=== PATIENT | female | born 1990 | race Caucasian/White ===

== ENCOUNTER 2017-11-26 05:40 | Inpatient (IN) | payer MEDICAID ==
--- NOTE | 2017-11-26 06:59 | PCM.LDHP ---
L&D History of Present Illness - General Date of Service: 11/26/17 Admit Problem/Dx: Admission Diagnosis/Problem Admission Diagnosis/Problem Source of Information: Patient History Limitations: Reports: No Limitations - History of Present Illness Introduction:: 27-year-old PERRY 11/27/17 at 39 weeks 6 days estimated gestational age presented to labor and delivery with contractions cervix 3 cm dilated 80% effaced soft anterior vertex -1 station. Amniotomy performed at 0 650 to clear fluid. Group B strep negative. No history of MRSA. O+, antibody screen negative. On 05/23/17 hemoglobin hematocrit 13.3/37.4 platelets 232,000. Rubella immune. Serology nonreactive. Hepatitis B surface antigen and HIV negative. GC, a probe negative. On 09/04/17 hemoglobin hematocrit 12.3/37.1 platelets 199,000 diabetes screen 134 3 hour glucose tolerance test normal at 75 fasting 1 hour 145, two-hour 150, 3 hour 112. On 10/30/17 group B strep negative. Timing/Duration: Reports: hour(s): Quality: Reports: Ache, Pressure Severity: Moderate Pain Score: 7 Improves with: Reports: None Worsens with: Reports: None Associated Symptoms: Reports: N - Related Data Allergies/Adverse Reactions: Allergies Allergy/AdvReac Type Severity Reaction Status Date / Time No Known Allergies Allergy Verified 11/26/17 06:47 Past Medical History [employer] History: Reports: : 1 Para: 0 (0000) LMP (Approximate): Psychiatric History: Reports: Anxiety, Depression Social & Family History - Family History Cardiac: Reports: Hypertension (Father) Respiratory: Reports: Asthma (Paternal grandmother grandfather and brother Bryan patient has no history of asthma)) Endocrine/Metabolic: Reports: Diabetes, type II (Paternal grandmother) H&P Review of Systems - Review of Systems: Review Of Systems: See Below General: Reports: No Symptoms HEENT: Reports: No Symptoms Pulmonary: Reports: No Symptoms Cardiovascular: Reports: No Symptoms Gastrointestinal: Reports: No Symptoms Genitourinary: Reports: No Symptoms Musculoskeletal: Reports: No Symptoms Skin: Reports: No Symptoms Psychiatric: Reports: No Symptoms Neurological: Reports: No Symptoms Hematologic/Lymphatic: Reports: No Symptoms Immunologic: Reports: No Symptoms L&D Exam - Exam Exam: See Below - Vital Signs Weight: 213 lb - OB Specific Fundal Height In cm: 40 Contraction Duration (sec): 60 Contraction Frequency (min): 3 Contraction Intensity: Moderate to Strong Movement: Active Heart Tones: Present Heart Tones per Min: 135 Heart Rate (FHR) Variability: Moderate (6-25 bmp) Presentation: Vertex - Griffin Score Griffin Score Cervix Position: Anterior Griffin Score Consistency: Soft Griffin Score Effacement: >80% Griffin Score Dilation: 3-4 cm Griffin Score Infant's Station: -1 ,0 Griffin Score Total: 11 - Exam General: Alert, Oriented HEENT: Conjunctiva Clear, Hearing Intact, Mucosa Moist & [place], PERRLA Neck: Supple, Trachea Midline Lungs: Clear to Auscultation, Normal Respiratory Effort Cardiovascular: Regular Rate, Regular Rhythm GI/Abdominal Exam: Normal Bowel Sounds, Soft Rectal Exam: Normal Rectal Tone Genitourinary: Normal external exam, Normal bimanual exam, Normal speculum exam Extremities: Normal Inspection, Normal Range of Motion, Non-Tender, No Pedal Edema, Normal Capillary Refill Skin: Warm, Dry, Intact Neurological: Reflexes Equal Bilateral DTR: 2+: Patella (L), Patella (R) Psychiatric: Alert, Normal Affect, Normal Mood - Problem List (1) 39 weeks gestation of SNOMED Code(s): 85847620 ICD Code: Z3A.39 - 39 WEEKS GESTATION OF Status: Acute Current Visit: Yes Problem List Initiated/Reviewed/Updated: No Assessment/Plan Comment:: Labor and delivery
[2017-11-26] MEDS ORDERED: Sodium Chloride 0.9% 10 ML Syringe FLUSH PRN (07:04)
[2017-11-26] MEDS ORDERED: Oxytocin/Lactated Ringers 10 UNIT/1,000 ML BAG IV SCH (07:15)
[2017-11-26] MEDS: Lactated Ringers 1,000 ML IV SCH ×3 (07:15→12:06)
[2017-11-26] MEDS ORDERED: diphenhydrAMINE 50 MG/ML SDV IVPUSH PRN (08:04)
[2017-11-26] MEDS ORDERED: fentaNYL 100 MCG/2 ML SDV EPIDUR PRN (08:04)
[2017-11-26] MEDS ORDERED: ePHEDrine 50 MG/ML SDV IVPUSH PRN (08:04)
[2017-11-26] MEDS ORDERED: Ondansetron 4 MG/2 ML SDV IVPUSH PRN (08:04)
[2017-11-26] MEDS: Bupivacaine/fentaNYL/NS 100 ML Bag EPIDUR SCH ×2 (08:35→15:18)
--- NOTE | 2017-11-26 08:48 | PCM.PREANE ---
Preanesthetic Assessment - Procedure Proposed Procedure: TIMOTEO - Anesthesia/Transfusion/Family Hx Anesthesia History: Prior Anesthesia Without Reaction Family History of Anesthesia Reaction: No Transfusion History: No Prior Transfusion(s) - Review of Systems General: No Symptoms Pulmonary: No Symptoms Cardiovascular: No Symptoms Gastrointestinal: No Symptoms Neurological: Other ([place]- hearing aide in left ear ) Other: Reports: None - Physical Assessment NPO Status Date: 11/26/17 NPO Status Time: 04:00 O2 Sat by Pulse Oximetry: 99 Respiratory Rate: 20 Vital Signs: Last Vital Signs Temp 36.6 C 11/26/17 07:25 Pulse Resp 20 11/26/17 07:25 BP 143/77 H 11/26/17 07:25 Pulse Ox 99 11/26/17 07:25 Height: 1.68 m Weight: 96.615 kg Mental Status: Alert & Oriented x3 Airway Class: Mallampati = 2 Dentition: Reports: Normal Dentition Thyro-Mental Finger Breadths: 3 Mouth Opening Finger Breadths: 3 ROM/Head Extension: Full Lungs: Clear to Auscultation, Normal Respiratory Effort Cardiovascular: Regular Rate, Regular Rhythm - Lab Values: Laboratory Last Values WBC 13.23 K/mm3 (3.98-10.04) H 11/26/17 07:45 RBC 4.00 M/mm3 (3.98-5.22) 11/26/17 07:45 Hgb 12.1 gm/L (11.2-15.7) 11/26/17 07:45 Hct 35.2 % (34.1-44.9) 11/26/17 07:45 MCV 88.0 fl (79.4-94.8) 11/26/17 07:45 MCH 30.3 pg (25.6-32.2) 11/26/17 07:45 MCHC 34.4 g/dl (32.2-35.5) 11/26/17 07:45 RDW Std Deviation 42.3 fL (36.4-46.3) 11/26/17 07:45 Plt Count 159 K/mm3 (182-369) L 11/26/17 07:45 MPV 10.1 fl (9.4-12.3) 11/26/17 07:45 Neut % (Auto) 86.0 % (34.0-71.1) H 11/26/17 07:45 Lymph % (Auto) 7.9 % (19.3-51.7) L 11/26/17 07:45 [place] % (Auto) 5.1 % (4.7-12.5) 11/26/17 07:45 Eos % (Auto) 0.2 (0.7-5.8) L 11/26/17 07:45 Baso % (Auto) 0.1 % (0.1-1.2) 11/26/17 07:45 Neut # (Auto) 11.40 K/mm3 (1.56-6.13) H 11/26/17 07:45 Lymph # (Auto) 1.04 K/mm3 (1.18-3.74) L 11/26/17 07:45 [place] # (Auto) 0.67 K/mm3 (0.24-0.36) H 11/26/17 07:45 Eos # (Auto) 0.02 K/mm3 (0.04-0.36) L 11/26/17 07:45 Baso # (Auto) 0.01 K/mm3 (0.01-0.08) 11/26/17 07:45 Manual Slide Review Abnormal smear 11/26/17 07:45 Fibrinogen 435 mg/dL (187-446) 11/26/17 07:45 Fibrin Degrad Products < 5 ug/ml ug/mL (<5) 11/26/17 07:45 BUN 8 mg/dL (7-18) 11/26/17 07:45 Creatinine 0.8 mg/dL (0.55-1.02) 11/26/17 07:45 Est Cr Clr Drug Dosing 99.76 mL/min 11/26/17 07:45 Estimated GFR (MDRD) > 60 mL/min (>60) 11/26/17 07:45 Uric Acid 4.6 mg/dL (2.6-6.0) 11/26/17 07:45 AST 18 U/L (15-37) 11/26/17 07:45 ALT 18 U/L (14-59) 11/26/17 07:45 Lactate Dehydrogenase 144 U/L (81-234) 11/26/17 07:45 - Allergies Allergies/Adverse Reactions: Allergies Allergy/AdvReac Type Severity Reaction Status Date / Time No Known Allergies Allergy Verified 11/26/17 06:47 - Blood Blood Available: No Product(s) Available: None - Anesthesia Plan Pre-Op Medication Ordered: None - Acknowledgements Anesthesia Type Planned: Epidural Pt an Appropriate Candidate for the Planned Anesthesia: Yes Alternatives and Risks of Anesthesia Discussed w Pt/Guardian: Yes Pt/Guardian Understands and Agrees with Anesthesia Plan: Yes PreAnesthesia Questionnaire TAR HEATER History: Reports: Psychiatric History: Reports: Anxiety, Depression - CURRENT (IN HOUSE) MEDS Current Meds: Current Medications Diphenhydramine HCl (Benadryl) 25 mg IVPUSH Q6H PRN PRN Reason: Pruritis Ephedrine Sulfate (Ephedrine Sulfate) 5 mg IVPUSH ASDIRECTED PRN PRN Reason: Hypotension Fentanyl (Sublimaze) 100 mcg EPIDUR Q3H PRN PRN Reason: Pain Last Admin: 11/26/17 08:34 Dose: 100 mcg Fentanyl/Bupivacaine HCl (Fentanyl/Bupivacaine/Ns 2 Mcg-0.125% 100 Ml) 100 ml EPIDUR ASDIRECTED DORIAN Last Admin: 11/26/17 08:35 Dose: 100 ml Lactated Ringer's (Ringers, Lactated) 1,000 mls @ 100 mls/hr IV ASDIRECTED DORIAN Last Admin: 11/26/17 07:15 Dose: 999 mls/hr Oxytocin/Lactated Ringer's (Pitocin In Lr 10 Units/1,000 Ml) 10 unit in 1,000 mls @ 12 mls/hr IV TITRATE DORIAN; Protocol Ondansetron HCl (Zofran) 4 mg IVPUSH ONETIME PRN PRN Reason: Nausea/Vomiting Sodium Chloride (Saline Flush) 10 ml FLUSH ASDIRECTED PRN PRN Reason: Keep Vein Open
[2017-11-26] MEDS ORDERED: Bupivacaine 0.25% 10 ML SDV ONE (10:00)
--- NOTE | 2017-11-26 16:44 | PCM.DEL ---
L & D Note - General Info Date of Service: 11/26/17 Mother's Due Date: 11/27/17 - Delivery Note Labor: Spontaneous, Augmented by ARM Cervical Ripening Method: Oxytocin Delivery Outcome: Livebirth (Female liveborn Friday11/26/17 at 1619 hrs. MARY no nuchal cord Apgars 8/9. Weight 4030 g/8 pounds 14.2 ounces over second- degree midline laceration under epidural anesthesia.) Delivery Method: Spontaneous Vaginal Delivery-Single Delivery Mode: Spontaneous Presentation: Left Occiput Anterior (MARY) Nuchal Cord: None Prep: Povidone-Iodine (Betadine Anesthesia Type: Epidural Amniotic Fluid Description: Clear Episiotomy Type: None Laceration: 2nd Degree Suture type: Other (Monocryl) Suture size: 3-0 (2) Placenta: Intact, Spontaneous (3 hrs. intact examined discarded) Cord: 3 Vessels Estimated Blood Loss: 250 Resuscitation Needed: No [place]: Suctioned, Bulb Syringe, Stimulated, Warmed, [place] Used, Warmer Used Provider: Con Solano Score 1 min: 8 Score 5 min: 9 - General Info Date of Service: 11/26/17 Functional Status: Reports: Pain Controlled - Review of Systems General: Reports: No Symptoms HEENT: Reports: No Symptoms Pulmonary: Reports: No Symptoms Cardiovascular: Reports: No Symptoms Gastrointestinal: Reports: No Symptoms Genitourinary: Reports: No Symptoms Musculoskeletal: Reports: No Symptoms Skin: Reports: No Symptoms Neurological: Reports: No Symptoms Psychiatric: Reports: No Symptoms - Patient Data Vitals - Most Recent: Last Vital Signs Temp 97.8 F 11/26/17 07:25 Pulse Resp 20 11/26/17 08:47 BP 143/77 H 11/26/17 07:25 Pulse Ox 99 11/26/17 08:47 Weight - Most Recent: 213 lb I&O - Last 24 Hours: Intake & Output 11/26/17 11/26/17 11/26/17 06:59 14:59 22:59 Intake Total 0 Balance 0 Lab Results Last 24 Hours: Laboratory Results - last 24 hr 11/26/17 11/26/17 11/26/17 Range/Units 07:45 07:45 07:45 WBC 13.23 H (3.98-10.04) K/mm3 RBC 4.00 (3.98-5.22) M/mm3 Hgb 12.1 (11.2-15.7) gm/L Hct 35.2 (34.1-44.9) % MCV 88.0 (79.4-94.8) fl MCH 30.3 (25.6-32.2) pg MCHC 34.4 (32.2-35.5) g/dl RDW Std Deviation 42.3 (36.4-46.3) fL Plt Count 159 L (182-369) K/mm3 MPV 10.1 (9.4-12.3) fl Neut % (Auto) 86.0 H (34.0-71.1) % Lymph % (Auto) 7.9 L (19.3-51.7) % [place] % (Auto) 5.1 (4.7-12.5) % Eos % (Auto) 0.2 L (0.7-5.8) Baso % (Auto) 0.1 (0.1-1.2) % Neut # (Auto) 11.40 H (1.56-6.13) K/mm3 Lymph # (Auto) 1.04 L (1.18-3.74) K/mm3 [place] # (Auto) 0.67 H (0.24-0.36) K/mm3 Eos # (Auto) 0.02 L (0.04-0.36) K/mm3 Baso # (Auto) 0.01 (0.01-0.08) K/mm3 Manual Slide Review Abnormal smear Fibrinogen 435 (187-446) mg/dL Fibrin Degrad Products < 5 ug/ml (<5) ug/mL BUN (7-18) mg/dL Creatinine (0.55-1.02) mg/dL Est Cr Clr Drug Dosing mL/min Estimated GFR (MDRD) (>60) mL/min Uric Acid (2.6-6.0) mg/dL AST (15-37) U/L ALT (14-59) U/L Lactate Dehydrogenase (81-234) U/L Blood Type O POSITIVE Gel Antibody Screen Negative 11/26/17 Range/Units 07:45 WBC (3.98-10.04) K/mm3 RBC (3.98-5.22) M/mm3 Hgb (11.2-15.7) gm/L Hct (34.1-44.9) % MCV (79.4-94.8) fl MCH (25.6-32.2) pg MCHC (32.2-35.5) g/dl RDW Std Deviation (36.4-46.3) fL Plt Count (182-369) K/mm3 MPV (9.4-12.3) fl Neut % (Auto) (34.0-71.1) % Lymph % (Auto) (19.3-51.7) % [place] % (Auto) (4.7-12.5) % Eos % (Auto) (0.7-5.8) Baso % (Auto) (0.1-1.2) % Neut # (Auto) (1.56-6.13) K/mm3 Lymph # (Auto) (1.18-3.74) K/mm3 [place] # (Auto) (0.24-0.36) K/mm3 Eos # (Auto) (0.04-0.36) K/mm3 Baso # (Auto) (0.01-0.08) K/mm3 Manual Slide Review Fibrinogen (187-446) mg/dL Fibrin Degrad Products (<5) ug/mL BUN 8 (7-18) mg/dL Creatinine 0.8 (0.55-1.02) mg/dL Est Cr Clr Drug Dosing 99.76 mL/min Estimated GFR (MDRD) > 60 (>60) mL/min Uric Acid 4.6 (2.6-6.0) mg/dL AST 18 (15-37) U/L ALT 18 (14-59) U/L Lactate Dehydrogenase 144 (81-234) U/L Blood Type Gel Antibody Screen Med Orders - Current: Current Medications Diphenhydramine HCl (Benadryl) 25 mg IVPUSH Q6H PRN PRN Reason: Pruritis Ephedrine Sulfate (Ephedrine Sulfate) 5 mg IVPUSH ASDIRECTED PRN PRN Reason: Hypotension Fentanyl (Sublimaze) 100 mcg EPIDUR Q3H PRN PRN Reason: Pain Last Admin: 11/26/17 08:34 Dose: 100 mcg Fentanyl/Bupivacaine HCl (Fentanyl/Bupivacaine/Ns 2 Mcg-0.125% 100 Ml) 100 ml EPIDUR ASDIRECTED DORIAN Last Admin: 11/26/17 15:18 Dose: 100 ml Lactated Ringer's (Ringers, Lactated) 1,000 mls @ 100 mls/hr IV ASDIRECTED DORIAN Last Admin: 11/26/17 12:06 Dose: 999 mls/hr Oxytocin/Lactated Ringer's (Pitocin In Lr 10 Units/1,000 Ml) 10 unit in 1,000 mls @ 12 mls/hr IV TITRATE DORIAN; Protocol Last Admin: 11/26/17 12:23 Dose: 2 munits/min, 12 mls/hr Ondansetron HCl (Zofran) 4 mg IVPUSH ONETIME PRN PRN Reason: Nausea/Vomiting Sodium Chloride (Saline Flush) 10 ml FLUSH ASDIRECTED PRN PRN Reason: Keep Vein Open - Problem List & Annotations (1) 39 weeks gestation of SNOMED Code(s): 38216614 Code(s): Z3A.39 - 39 WEEKS GESTATION OF Status: Acute Current Visit: Yes (2) Second degree laceration of perineum, delivered, current hospitalization SNOMED Code(s): 042481814 Code(s): O70.1 - SECOND DEGREE PERINEAL LACERATION DURING DELIVERY Status: Acute Current Visit: Yes (3) Encounter for full-term uncomplicated delivery SNOMED Code(s): 96508841, 806507441 Code(s): O80 - ENCOUNTER FOR FULL-TERM UNCOMPLICATED DELIVERY Status: Acute Current Visit: Yes - Problem List Review Problem List Initiated/Reviewed/Updated: No - My Orders Last 24 Hours: My Active Orders 11/26/17 06:49 Patient Status [ADT] Routine Activity as Tolerated [RC] PFP Communication Order [RC] ASDIRECTED Notify Provider [RC] PFP Notify Provider [RC] PRN Vital Signs [RC] PER UNIT ROUTINE Electronic Heart Tones Ext w TOCO [WOMSER] Routine Electronic Heart Tones Internal [WOMSER] Per Unit Routine Peripheral IV Insertion Adult [OM.PC] Routine Resuscitation Status Routine 11/26/17 07:00 Lactated Ringers [Ringers, Lactated] 1,000 ml IV ASDIRECTED 11/26/17 07:04 Sodium Chloride 0.9% [Saline Flush] 10 ml FLUSH ASDIRECTED PRN PIH Panel [OM.PC] Stat 11/26/17 07:15 Oxytocin/Lactated Ringers [Pitocin in LR 10 Units/1,000 ML] 10 unit in 1,000 ml IV TITRATE 11/26/17 07:16 Heart Tones [RC] ASDIRECTED Peripheral IV Care [RC] . DIRECTED 11/26/17 Breakfast Regular Diet [DIET] - Plan Plan:: Labor and delivery
[2017-11-26] MEDS ORDERED: Witch Hazel Medicated Pads 100/Jar TOP PRN (17:14)
[2017-11-26] MEDS ORDERED: Docusate Sodium 100 MG Cap PO PRN (17:14)
[2017-11-26] MEDS ORDERED: Benzocaine/Menthol 20%-0.5% Spray 56 GM Canister TOP PRN (17:14)
[2017-11-26] MEDS ORDERED: Acetaminophen 325 MG Tab PO PRN (17:14)
[2017-11-26] MEDS ORDERED: Lanolin 100% Cream 7 GM Tube TOP PRN (17:14)
[2017-11-26] MEDS: Ibuprofen 600 MG Tab PO PRN (19:37)
[2017-11-27] MEDS: Ibuprofen 600 MG Tab PO PRN ×2 (06:09→20:49)
--- NOTE | 2017-11-27 07:19 | PCM48HPAN ---
Post Anesthesia Note - EVALUATION WITHIN 48HRS OF ANESTHETIC Vital Signs in Normal Range: Yes Patient Participated in Evaluation: Yes Respiratory Function Stable: Yes Airway Patent: Yes Cardiovascular Function Stable: Yes Hydration Status Stable: Yes Pain Control Satisfactory: Yes Nausea and Vomiting Control Satisfactory: Yes Mental Status Recovered: Yes
--- NOTE | 2017-11-27 08:12 | PCM.SN ---
- Free Text/Narrative Note: day 1: Afebrile no heavy vaginal bleeding no leg cramping. Patient ambulating. No complaints from laceration repair. Probably home tomorrow.
[2017-11-28] MEDS: Ibuprofen 600 MG Tab PO PRN (08:11)
--- NOTE | 2017-11-28 09:05 | PCM.DCSUM1 ---
Discharge Summary - Hospital Course Free Text/Narrative:: [facility] LIVE L/D Delivery Note Patient Name: SYDNI GIBSON Date of : 89 Patient Status: Inpatient Attending Provider: Con Solano Date: 11/26/17 16:40 Initialization Date: 11/26/17 16:40 L & D Note - General Info Date of Service: 11/26/17 Mother's Due Date: 11/27/17 - Delivery Note Labor: Spontaneous, Augmented by ARM Cervical Ripening Method: Oxytocin Delivery Outcome: Livebirth (Female liveborn Friday11/26/17 at 1619 hrs. MARY no nuchal cord Apgars 8/9. Weight 4030 g/8 pounds 14.2 ounces over second- degree midline laceration under epidural anesthesia.) Delivery Method: Spontaneous Vaginal Delivery-Single Delivery Mode: Spontaneous Presentation: Left Occiput Anterior (MARY) Nuchal Cord: None Prep: Povidone-Iodine (Betadine Anesthesia Type: Epidural Amniotic Fluid Description: Clear Episiotomy Type: None Laceration: 2nd Degree Suture type: Other (Monocryl) Suture size: 3-0 (2) Placenta: Intact, Spontaneous (1923 hrs. intact examined discarded) Cord: 3 Vessels Estimated Blood Loss: 250 Resuscitation Needed: No [place]: Suctioned, Bulb Syringe, Stimulated, Warmed, Henry Used, Warmer Used Provider: Con Solano Score 1 min: 8 Score 5 min: 9 - General Info Date of Service: 11/26/17 Functional Status: Reports: Pain Controlled - Review of Systems General: Reports: No Symptoms HEENT: Reports: No Symptoms Pulmonary: Reports: No Symptoms Cardiovascular: Reports: No Symptoms Gastrointestinal: Reports: No Symptoms Genitourinary: Reports: No Symptoms Musculoskeletal: Reports: No Symptoms Skin: Reports: No Symptoms Neurological: Reports: No Symptoms Psychiatric: Reports: No Symptoms - Patient Data Vitals - Most Recent: Last Vital Signs Temp 97.8 F 11/26/17 07:25 Pulse Resp 20 11/26/17 08:47 BP 143/77 H 11/26/17 07:25 Pulse Ox 99 11/26/17 08:47 Weight - Most Recent: 213 lb I&O - Last 24 Hours: Intake & Output 11/26/17 11/26/17 11/26/17 06:59 14:59 22:59 Intake Total 0 Balance 0 Lab Results Last 24 Hours: Laboratory Results - last 24 hr 11/26/17 11/26/17 11/26/17 Range/Units 07:45 07:45 07:45 WBC 13.23 H (3.98-10.04) K/mm3 RBC 4.00 (3.98-5.22) M/mm3 Hgb 12.1 (11.2-15.7) gm/L Hct 35.2 (34.1-44.9) % MCV 88.0 (79.4-94.8) fl MCH 30.3 (25.6-32.2) pg MCHC 34.4 (32.2-35.5) g/dl RDW Std Deviation 42.3 (36.4-46.3) fL Plt Count 159 L (182-369) K/mm3 MPV 10.1 (9.4-12.3) fl Neut % (Auto) 86.0 H (34.0-71.1) % Lymph % (Auto) 7.9 L (19.3-51.7) % Fisher % (Auto) 5.1 (4.7-12.5) % Eos % (Auto) 0.2 L (0.7-5.8) Baso % (Auto) 0.1 (0.1-1.2) % Neut # (Auto) 11.40 H (1.56-6.13) K/mm3 Lymph # (Auto) 1.04 L (1.18-3.74) K/mm3 Fisher # (Auto) 0.67 H (0.24-0.36) K/mm3 Eos # (Auto) 0.02 L (0.04-0.36) K/mm3 Baso # (Auto) 0.01 (0.01-0.08) K/mm3 Manual Slide Review Abnormal smear Fibrinogen 435 (187-446) mg/dL Fibrin Degrad Products < 5 ug/ml (<5) ug/mL BUN (7-18) mg/dL Creatinine (0.55-1.02) mg/dL Est Cr Clr Drug Dosing mL/min Estimated GFR (MDRD) (>60) mL/min Uric Acid (2.6-6.0) mg/dL AST (15-37) U/L ALT (14-59) U/L Lactate Dehydrogenase (81-234) U/L Blood Type O POSITIVE Gel Antibody Screen Negative 11/26/17 Range/Units 07:45 WBC (3.98-10.04) K/mm3 RBC (3.98-5.22) M/mm3 Hgb (11.2-15.7) gm/L Hct (34.1-44.9) % MCV (79.4-94.8) fl MCH (25.6-32.2) pg MCHC (32.2-35.5) g/dl RDW Std Deviation (36.4-46.3) fL Plt Count (182-369) K/mm3 MPV (9.4-12.3) fl Neut % (Auto) (34.0-71.1) % Lymph % (Auto) (19.3-51.7) % Fisher % (Auto) (4.7-12.5) % Eos % (Auto) (0.7-5.8) Baso % (Auto) (0.1-1.2) % Neut # (Auto) (1.56-6.13) K/mm3 Lymph # (Auto) (1.18-3.74) K/mm3 Fisher # (Auto) (0.24-0.36) K/mm3 Eos # (Auto) (0.04-0.36) K/mm3 Baso # (Auto) (0.01-0.08) K/mm3 Manual Slide Review Fibrinogen (187-446) mg/dL Fibrin Degrad Products (<5) ug/mL BUN 8 (7-18) mg/dL Creatinine 0.8 (0.55-1.02) mg/dL Est Cr Clr Drug Dosing 99.76 mL/min Estimated GFR (MDRD) > 60 (>60) mL/min Uric Acid 4.6 (2.6-6.0) mg/dL AST 18 (15-37) U/L ALT 18 (14-59) U/L Lactate Dehydrogenase 144 (81-234) U/L Blood Type Gel Antibody Screen Med Orders - Current: Current Medications Diphenhydramine HCl (Benadryl) 25 mg IVPUSH Q6H PRN PRN Reason: Pruritis Ephedrine Sulfate (Ephedrine Sulfate) 5 mg IVPUSH ASDIRECTED PRN PRN Reason: Hypotension Fentanyl (Sublimaze) 100 mcg EPIDUR Q3H PRN PRN Reason: Pain Last Admin: 11/26/17 08:34 Dose: 100 mcg Fentanyl/Bupivacaine HCl (Fentanyl/Bupivacaine/Ns 2 Mcg-0.125% 100 Ml) 100 ml EPIDUR ASDIRECTED DORIAN Last Admin: 11/26/17 15:18 Dose: 100 ml Lactated Ringer's (Ringers, Lactated) 1,000 mls @ 100 mls/hr IV ASDIRECTED DORIAN Last Admin: 11/26/17 12:06 Dose: 999 mls/hr Oxytocin/Lactated Ringer's (Pitocin In Lr 10 Units/1,000 Ml) 10 unit in 1,000 mls @ 12 mls/hr IV TITRATE DORIAN; Protocol Last Admin: 11/26/17 12:23 Dose: 2 munits/min, 12 mls/hr Ondansetron HCl (Zofran) 4 mg IVPUSH ONETIME PRN PRN Reason: Nausea/Vomiting Sodium Chloride (Saline Flush) 10 ml FLUSH ASDIRECTED PRN PRN Reason: Keep Vein Open - Problem List & Annotations (1) 39 weeks gestation of SNOMED Code(s): 86699264 Code(s): Z3A.39 - 39 WEEKS GESTATION OF Status: Acute Current Visit: Yes (2) Second degree laceration of perineum, delivered, current hospitalization SNOMED Code(s): 195399125 Code(s): O70.1 - SECOND DEGREE PERINEAL LACERATION DURING DELIVERY Status: Acute Current Visit: Yes (3) Encounter for full-term uncomplicated delivery SNOMED Code(s): 13152961, 696955796 Code(s): O80 - ENCOUNTER FOR FULL-TERM UNCOMPLICATED DELIVERY Status: Acute Current Visit: Yes - Problem List Review Problem List Initiated/Reviewed/Updated: No - My Orders Last 24 Hours: My Active Orders 11/26/17 06:49 Patient Status [ADT] Routine Activity as Tolerated [RC] PFP Communication Order [RC] ASDIRECTED Notify Provider [RC] PFP Notify Provider [RC] PRN Vital Signs [RC] PER UNIT ROUTINE Electronic Heart Tones Ext w TOCO [WOMSER] Routine Electronic Heart Tones Internal [WOMSER] Per Unit Routine Peripheral IV Insertion Adult [OM.PC] Routine Resuscitation Status Routine 11/26/17 07:00 Lactated Ringers [Ringers, Lactated] 1,000 ml IV ASDIRECTED 11/26/17 07:04 Sodium Chloride 0.9% [Saline Flush] 10 ml FLUSH ASDIRECTED PRN PIH Panel [OM.PC] Stat 11/26/17 07:15 Oxytocin/Lactated Ringers [Pitocin in LR 10 Units/1,000 ML] 10 unit in 1,000 ml IV TITRATE 11/26/17 07:16 Heart Tones [RC] ASDIRECTED Peripheral IV Care [RC] . DIRECTED 11/26/17 Breakfast Regular Diet [DIET] - Plan Plan:: Labor and delivery HPI Initial Comments: [facility] LIVE L/D Delivery Note Patient Name: SYDNI GIBSON Date of : 89 Patient Status: Inpatient Attending Provider: Con Solano Date: 11/26/17 16:40 Initialization Date: 11/26/17 16:40 L & D Note - General Info Date of Service: 11/26/17 Mother's Due Date: 11/27/17 - Delivery Note Labor: Spontaneous, Augmented by ARM Cervical Ripening Method: Oxytocin Delivery Outcome: Livebirth (Female liveborn Friday11/26/17 at 1619 hrs. MARY no nuchal cord Apgars 8/9. Weight 4030 g/8 pounds 14.2 ounces over second- degree midline laceration under epidural anesthesia.) Delivery Method: Spontaneous Vaginal Delivery-Single Infant Delivery Mode: Spontaneous Presentation: Left Occiput Anterior (MARY) Nuchal Cord: None Prep: Povidone-Iodine (Betadine Anesthesia Type: Epidural Amniotic Fluid Description: Clear Episiotomy Type: None Laceration: 2nd Degree Suture type: Other (Monocryl) Suture size: 3-0 (2) Placenta: Intact, Spontaneous (1923 hrs. intact examined discarded) Cord: 3 Vessels Estimated Blood Loss: 250 Resuscitation Needed: No : Suctioned, Bulb Syringe, Stimulated, Warmed, Henry Used, Warmer Used Provider: Con Solano Score 1 min: 8 Score 5 min: 9 - General Info Date of Service: 11/26/17 Functional Status: Reports: Pain Controlled - Review of Systems General: Reports: No Symptoms HEENT: Reports: No Symptoms Pulmonary: Reports: No Symptoms Cardiovascular: Reports: No Symptoms Gastrointestinal: Reports: No Symptoms Genitourinary: Reports: No Symptoms Musculoskeletal: Reports: No Symptoms Skin: Reports: No Symptoms Neurological: Reports: No Symptoms Psychiatric: Reports: No Symptoms - Patient Data Vitals - Most Recent: Last Vital Signs Temp 97.8 F 11/26/17 07:25 Pulse Resp 20 11/26/17 08:47 BP 143/77 H 11/26/17 07:25 Pulse Ox 99 11/26/17 08:47 Weight - Most Recent: 213 lb I&O - Last 24 Hours: Intake & Output 11/26/17 11/26/17 11/26/17 06:59 14:59 22:59 Intake Total 0 Balance 0 Lab Results Last 24 Hours: Laboratory Results - last 24 hr 11/26/17 11/26/17 11/26/17 Range/Units 07:45 07:45 07:45 WBC 13.23 H (3.98-10.04) K/mm3 RBC 4.00 (3.98-5.22) M/mm3 Hgb 12.1 (11.2-15.7) gm/L Hct 35.2 (34.1-44.9) % MCV 88.0 (79.4-94.8) fl MCH 30.3 (25.6-32.2) pg MCHC 34.4 (32.2-35.5) g/dl RDW Std Deviation 42.3 (36.4-46.3) fL Plt Count 159 L (182-369) K/mm3 MPV 10.1 (9.4-12.3) fl Neut % (Auto) 86.0 H (34.0-71.1) % Lymph % (Auto) 7.9 L (19.3-51.7) % Fisher % (Auto) 5.1 (4.7-12.5) % Eos % (Auto) 0.2 L (0.7-5.8) Baso % (Auto) 0.1 (0.1-1.2) % Neut # (Auto) 11.40 H (1.56-6.13) K/mm3 Lymph # (Auto) 1.04 L (1.18-3.74) K/mm3 Fisher # (Auto) 0.67 H (0.24-0.36) K/mm3 Eos # (Auto) 0.02 L (0.04-0.36) K/mm3 Baso # (Auto) 0.01 (0.01-0.08) K/mm3 Manual Slide Review Abnormal smear Fibrinogen 435 (187-446) mg/dL Fibrin Degrad Products < 5 ug/ml (<5) ug/mL BUN (7-18) mg/dL Creatinine (0.55-1.02) mg/dL Est Cr Clr Drug Dosing mL/min Estimated GFR (MDRD) (>60) mL/min Uric Acid (2.6-6.0) mg/dL AST (15-37) U/L ALT (14-59) U/L Lactate Dehydrogenase (81-234) U/L Blood Type O POSITIVE Gel Antibody Screen Negative 11/26/17 Range/Units 07:45 WBC (3.98-10.04) K/mm3 RBC (3.98-5.22) M/mm3 Hgb (11.2-15.7) gm/L Hct (34.1-44.9) % MCV (79.4-94.8) fl MCH (25.6-32.2) pg MCHC (32.2-35.5) g/dl RDW Std Deviation (36.4-46.3) fL Plt Count (182-369) K/mm3 MPV (9.4-12.3) fl Neut % (Auto) (34.0-71.1) % Lymph % (Auto) (19.3-51.7) % Fisher % (Auto) (4.7-12.5) % Eos % (Auto) (0.7-5.8) Baso % (Auto) (0.1-1.2) % Neut # (Auto) (1.56-6.13) K/mm3 Lymph # (Auto) (1.18-3.74) K/mm3 Fisher # (Auto) (0.24-0.36) K/mm3 Eos # (Auto) (0.04-0.36) K/mm3 Baso # (Auto) (0.01-0.08) K/mm3 Manual Slide Review Fibrinogen (187-446) mg/dL Fibrin Degrad Products (<5) ug/mL BUN 8 (7-18) mg/dL Creatinine 0.8 (0.55-1.02) mg/dL Est Cr Clr Drug Dosing 99.76 mL/min Estimated GFR (MDRD) > 60 (>60) mL/min Uric Acid 4.6 (2.6-6.0) mg/dL AST 18 (15-37) U/L ALT 18 (14-59) U/L Lactate Dehydrogenase 144 (81-234) U/L Blood Type Gel Antibody Screen Med Orders - Current: Current Medications Diphenhydramine HCl (Benadryl) 25 mg IVPUSH Q6H PRN PRN Reason: Pruritis Ephedrine Sulfate (Ephedrine Sulfate) 5 mg IVPUSH ASDIRECTED PRN PRN Reason: Hypotension Fentanyl (Sublimaze) 100 mcg EPIDUR Q3H PRN PRN Reason: Pain Last Admin: 11/26/17 08:34 Dose: 100 mcg Fentanyl/Bupivacaine HCl (Fentanyl/Bupivacaine/Ns 2 Mcg-0.125% 100 Ml) 100 ml EPIDUR ASDIRECTED DORIAN Last Admin: 11/26/17 15:18 Dose: 100 ml Lactated Ringer's (Ringers, Lactated) 1,000 mls @ 100 mls/hr IV ASDIRECTED DORIAN Last Admin: 11/26/17 12:06 Dose: 999 mls/hr Oxytocin/Lactated Ringer's (Pitocin In Lr 10 Units/1,000 Ml) 10 unit in 1,000 mls @ 12 mls/hr IV TITRATE DORIAN; Protocol Last Admin: 11/26/17 12:23 Dose: 2 munits/min, 12 mls/hr Ondansetron HCl (Zofran) 4 mg IVPUSH ONETIME PRN PRN Reason: Nausea/Vomiting Sodium Chloride (Saline Flush) 10 ml FLUSH ASDIRECTED PRN PRN Reason: Keep Vein Open - Problem List & Annotations (1) 39 weeks gestation of SNOMED Code(s): 43247008 Code(s): Z3A.39 - 39 WEEKS GESTATION OF Status: Acute Current Visit: Yes (2) Second degree laceration of perineum, delivered, current hospitalization SNOMED Code(s): 782784752 Code(s): O70.1 - SECOND DEGREE PERINEAL LACERATION DURING DELIVERY Status: Acute Current Visit: Yes (3) Encounter for full-term uncomplicated delivery SNOMED Code(s): 36527917, 988633893 Code(s): O80 - ENCOUNTER FOR FULL-TERM UNCOMPLICATED DELIVERY Status: Acute Current Visit: Yes - Problem List Review Problem List Initiated/Reviewed/Updated: No - My Orders Last 24 Hours: My Active Orders 11/26/17 06:49 Patient Status [ADT] Routine Activity as Tolerated [RC] PFP Communication Order [RC] ASDIRECTED Notify Provider [RC] PFP Notify Provider [RC] PRN Vital Signs [RC] PER UNIT ROUTINE Electronic Heart Tones Ext w TOCO [WOMSER] Routine Electronic Heart Tones Internal [WOMSER] Per Unit Routine Peripheral IV Insertion Adult [OM.PC] Routine Resuscitation Status Routine 11/26/17 07:00 Lactated Ringers [Ringers, Lactated] 1,000 ml IV ASDIRECTED 11/26/17 07:04 Sodium Chloride 0.9% [Saline Flush] 10 ml FLUSH ASDIRECTED PRN PIH Panel [OM.PC] Stat 11/26/17 07:15 Oxytocin/Lactated Ringers [Pitocin in LR 10 Units/1,000 ML] 10 unit in 1,000 ml IV TITRATE 11/26/17 07:16 Heart Tones [RC] ASDIRECTED Peripheral IV Care [RC] . DIRECTED 11/26/17 Breakfast Regular Diet [DIET] - Plan Plan:: Labor and delivery Brief History: [facility] LIVE . L/D Delivery Note. Patient Name: SYDNI GIBSON MMedical Record Number: [id number]. Date of : Patient Status: Inpatient. Attending Provider: Con Solano Number: [id number]. Date: 11/26/17 16:40Initialization Date: 11/26/17 16:40. L & D Note. - General Info. Date of Service: 11/26/17. Mother's Due Date: 11/27/17. - Delivery Note. Labor: Spontaneous, Augmented by ARM. Cervical Ripening Method: Oxytocin. Delivery Outcome: Livebirth (Female liveborn Friday11/26/17 at 1619 hrs. MARY no nuchal cord Apgars 8/9. Weight 4030 g/8 pounds 14.2 ounces over second-degree midline laceration under epidural anesthesia.). Infant Delivery Method: Spontaneous Vaginal Delivery-Single. Infant Delivery Mode: Spontaneous. Presentation: Left Occiput Anterior ( MARY). Nuchal Cord: None. Prep: Povidone-Iodine (Betadine. Anesthesia Type: Epidural. Amniotic Fluid Description: Clear. Episiotomy Type: None. Laceration: 2nd Degree. Suture type: Other (Monocryl). Suture size: 3-0 (2). Placenta: Intact, Spontaneous (1923 hrs. intact examined discarded). Cord: 3 Vessels. Estimated Blood Loss: 250. Resuscitation Needed: No. : Suctioned, Bulb Syringe, Stimulated, Warmed, Henry Used, Warmer Used. Provider: Con Solano. Score 1 min: 8. Score 5 min : 9. - General Info. Date of Service: 11/26/17. Functional Status: Reports: Pain Controlled. - Review of Systems. General: Reports: No Symptoms. HEENT: Reports: No Symptoms. Pulmonary: Reports: No Symptoms. Cardiovascular: Reports : No Symptoms. Gastrointestinal: Reports: No Symptoms. Genitourinary: Reports : No Symptoms. Musculoskeletal: Reports: No Symptoms. Skin: Reports: No Symptoms. Neurological: Reports: No Symptoms. Psychiatric: Reports: No Symptoms. - Patient Data. Vitals - Most Recent: Last Vital Signs. Temp 97.8 F 11/26/17 07:25. Pulse. Resp 20 11/26/17 08:47. BP 143/77 H 11/26/17 07: 25. Pulse Ox 99 11/26/17 08:47. Weight - Most Recent: 213 lb. I&O - Last 24 Hours: Intake & Output. 11/26/1804. 06:5914:5922:59. Intake Total0. Balance0. Lab Results Last 24 Hours: Laboratory Results - last 24 hr. 11/26/1804Range/Units. 07:4507:4507:45. WBC 13.23 H (3.98- 10.04) K/mm3. RBC 4.00 (3.98-5.22) M/mm3. Hgb 12.1 (11.2-15.7) gm/L. Hct 35.2 (34.1-44.9) %. MCV 88.0 (79.4-94.8) fl. MCH 30.3 (25.6-32.2) pg. MCHC 34.4 (32.2-35.5) g/dl. RDW Std Deviation 42.3 (36.4-46.3) fL. Plt Count 159 L (182-369) K/mm3. MPV 10.1 (9.4-12.3) fl. Neut % (Auto) 86.0 H ( 34.0-71.1) %. Lymph % (Auto) 7.9 L (19.3-51.7) %. Fisher % (Auto) 5.1 (4.7- 12.5) %. Eos % (Auto) 0.2 L (0.7-5.8). Baso % (Auto) 0.1 (0.1-1.2) %. Neut # (Auto) 11.40 H (1.56-6.13) K/mm3. Lymph # (Auto) 1.04 L (1.18-3.74) K/mm3. Fisher # (Auto) 0.67 H (0.24-0.36) K/mm3. Eos # (Auto) 0.02 L (0.04-0.36) K/ mm3. Baso # (Auto) 0.01 (0.01-0.08) K/mm3. Manual Slide Review Abnormal smear. Fibrinogen 435 (187-446) mg/dL. Fibrin Degrad Products < 5 ug/ml (<5) ug/mL. BUN (7-18) mg/dL. Creatinine (0.55-1.02) mg/dL. Est Cr Clr Drug Dosing mL/min. Estimated GFR (MDRD) (>60) mL/min. Uric Acid (2.6-6.0) mg/ dL. AST (15-37) U/L. ALT (14-59) U/L. Lactate Dehydrogenase (81-234) U/L. Blood Type O POSITIVE. Gel Antibody Screen Negative. 11/26/17Range/Units. 07:45. WBC (3.98-10.04) K/mm3. RBC (3.98-5.22) M/mm3. Hgb (11.2-15.7) gm/ L. Hct (34.1-44.9) %. MCV (79.4-94.8) fl. MCH (25.6-32.2) pg. MCHC (32.2- 35.5) g/dl. RDW Std Deviation (36.4-46.3) fL. Plt Count (182-369) K/mm3. MPV (9.4-12.3) fl. Neut % (Auto) (34.0-71.1) %. Lymph % (Auto) (19.3-51.7) %. Fisher % (Auto) (4.7-12.5) %. Eos % (Auto) (0.7-5.8). Baso % (Auto) (0.1- 1.2) %. Neut # (Auto) (1.56-6.13) K/mm3. Lymph # (Auto) (1.18-3.74) K/mm3. Fisher # (Auto) (0.24-0.36) K/mm3. Eos # (Auto) (0.04-0.36) K/mm3. Baso # ( Auto) (0.01-0.08) K/mm3. Manual Slide Review. Fibrinogen (187-446) mg/dL. Fibrin Degrad Products (<5) ug/mL. BUN 8 (7-18) mg/dL. Creatinine 0.8 (0.55- 1.02) mg/dL. Est Cr Clr Drug Dosing 99.76 mL/min. Estimated GFR (MDRD) > 60 ( >60) mL/min. Uric Acid 4.6 (2.6-6.0) mg/dL. AST 18 (15-37) U/L. ALT 18 (14 -59) U/L. Lactate Dehydrogenase 144 (81-234) U/L. Blood Type. Gel Antibody Screen. Med Orders - Current: Current Medications. Diphenhydramine HCl ( Benadryl) 25 mg IVPUSH Q6H PRN. PRN Reason: Pruritis. Ephedrine Sulfate ( Ephedrine Sulfate) 5 mg IVPUSH ASDIRECTED PRN. PRN Reason: Hypotension. Fentanyl (Sublimaze) 100 mcg EPIDUR Q3H PRN. PRN Reason: Pain. Last Admin: 08:34 Dose: 100 mcg. Fentanyl/Bupivacaine HCl (Fentanyl/Bupivacaine/Ns 2 Mcg-0.125% 100 Ml) 100 ml EPIDUR ASDIRECTED DORIAN. Last Admin: 11/26/17 15:18 Dose: 100 ml. Lactated Ringer's (Ringers, Lactated) 1,000 mls @ 100 mls/hr IV ASDIRECTED DORIAN. Last Admin: 11/26/17 12:06 Dose: 999 mls/hr. Oxytocin/ Lactated Ringer's (Pitocin In Lr 10 Units/1,000 Ml) 10 unit in 1,000 mls @ 12 mls/hr IV TITRATE DORIAN; Protocol. Last Admin: 11/26/17 12:23 Dose: 2 munits/min , 12 mls/hr. Ondansetron HCl (Zofran) 4 mg IVPUSH ONETIME PRN. PRN Reason: Nausea/Vomiting. Sodium Chloride (Saline Flush) 10 ml FLUSH ASDIRECTED PRN. PRN Reason: Keep Vein Open. - Problem List & Annotations. (1) 39 weeks gestation of . SNOMED Code(s): 83610671. Code(s): Z3A.39 - 39 WEEKS GESTATION OF Status: Acute Current Visit: Yes. (2) Second degree laceration of perineum, delivered, current hospitalization. SNOMED Code(s): 391208896. Code(s): O70.1 - SECOND DEGREE PERINEAL LACERATION DURING DELIVERY Status: Acute Current Visit: Yes. (3) Encounter for full-term uncomplicated delivery. SNOMED Code(s): 72683238, 362088362. Code(s): O80 - ENCOUNTER FOR FULL-TERM UNCOMPLICATED DELIVERY Status: Acute Current Visit: Yes. - Problem List Review. Problem List Initiated/Reviewed/Updated: No. - My Orders. Last 24 Hours: My Active Orders. 11/26/17 06:49. Patient Status [ ADT] Routine. Activity as Tolerated [RC] PFP. Communication Order [RC] ASDIRECTED. Notify Provider [RC] PFP. Notify Provider [RC] PRN. Vital Signs [ RC] PER UNIT ROUTINE. Electronic Heart Tones Ext w TOCO [WOMSER] Routine. Electronic Heart Tones Internal [WOMSER] Per Unit Routine. Peripheral IV Insertion Adult [OM.PC] Routine. Resuscitation Status Routine. 11/26/17 07:00. Lactated Ringers [Ringers, Lactated] 1,000 ml IV ASDIRECTED. 11/26/17 07:04. Sodium Chloride 0.9% [Saline Flush] 10 ml FLUSH ASDIRECTED PRN. PIH Panel [OM.PC] Stat. 11/26/17 07:15. Oxytocin/Lactated Ringers [ Pitocin in LR 10 Units/1,000 ML] 10 unit in 1,000 ml IV TITRATE. 11/26/17 07: 16. Heart Tones [RC] ASDIRECTED. Peripheral IV Care [RC] . DIRECTED. 11/26/17 Breakfast. Regular Diet [DIET]. - Plan. Plan:: Labor and delivery - Discharge Data Discharge Date: 11/28/17 Discharge Disposition: Home, Self-Care 01 Condition: Good - Discharge Diagnosis/Problem(s) (1) 39 weeks gestation of SNOMED Code(s): 27802907 ICD Code: Z3A.39 - 39 WEEKS GESTATION OF Status: Acute Current Visit: Yes (2) Second degree laceration of perineum, delivered, current hospitalization SNOMED Code(s): 896415450 ICD Code: O70.1 - SECOND DEGREE PERINEAL LACERATION DURING DELIVERY Status : Acute Current Visit: Yes (3) Encounter for full-term uncomplicated delivery SNOMED Code(s): 83969451, 144790246 ICD Code: O80 - ENCOUNTER FOR FULL-TERM UNCOMPLICATED DELIVERY Status: Acute Current Visit: Yes - Patient Summary/Data Complications: None Consults: None Hospital Course: Uneventful - Patient Instructions Diet: Regular Diet as Tolerated Driving: Do Not Drive (x48 hrs) Showering/Bathing: May Shower Notify Provider of: Fever, Increased Pain, Swelling and Redness, Drainage, Nausea and/or Vomiting - Discharge Plan Home Medications: Home Meds Acetaminophen [Tylenol] 650 mg PO Q4H PRN tablet 11/28/17 [Rx] Benzocaine/Menthol [Dermoplast Pain Relief [place]] 1 spray TOP ASDIRECTED PRN canister 11/28/17 [Rx] Docusate Sodium [Colace] 100 mg PO BID PRN cap 11/28/17 [Rx] Ibuprofen [Motrin] 600 mg PO Q4H PRN tablet 11/28/17 [Rx] Lanolin [Lansinoh HPA] 1 applic TOP ASDIRECTED PRN tube 11/28/17 [Rx] Witch Rima [Tucks] 1 pad TOP ASDIRECTED PRN pad 11/28/17 [Rx] Patient Handouts: Steps to Quit Smoking - Discharge Summary/Plan Comment DC Time >30 min.: No - Patient Data Vitals - Most Recent: Last Vital Signs Temp 98.2 F 11/28/17 03:20 Pulse 66 11/28/17 03:20 Resp 14 11/28/17 03:20 BP 124/67 11/28/17 03:20 Pulse Ox 98 11/28/17 03:20 Weight - Most Recent: 213 lb I&O - Last 24 hours: Intake & Output 11/27/17 11/28/17 11/28/17 22:59 06:59 14:59 Intake Total 240 Balance 240 Med Orders - Current: Current Medications Acetaminophen (Tylenol) 650 mg PO Q4H PRN PRN Reason: mild pain or fever Benzocaine/Menthol (Dermoplast Pain Relief [place]) 0 gm TOP ASDIRECTED PRN PRN Reason: Perineal Comfort Measure Last Admin: 11/26/17 18:35 Dose: 1 spr Docusate Sodium (Colace) 100 mg PO BID PRN PRN Reason: Constipation Emollient Ointment (Lansinoh Hpa) 0 gm TOP ASDIRECTED PRN PRN Reason: Sore Nipples Ibuprofen (Motrin) 600 mg PO Q4H PRN PRN Reason: Mild pain or fever Last Admin: 11/28/17 08:11 Dose: 600 mg Witch Rima (Tucks) 1 pad TOP ASDIRECTED PRN PRN Reason: Hemorrhoid pain Last Admin: 11/26/17 18:35 Dose: 1 pad Discontinued Medications Bupivacaine HCl (Sensorcaine-Mpf 0.25%) 20 ml .ROUTE .STK-MED ONE Stop: 11/26/17 10:01 Diphenhydramine HCl (Benadryl) 25 mg IVPUSH Q6H PRN PRN Reason: Pruritis Ephedrine Sulfate (Ephedrine Sulfate) 5 mg IVPUSH ASDIRECTED PRN PRN Reason: Hypotension Fentanyl (Sublimaze) 100 mcg EPIDUR Q3H PRN PRN Reason: Pain Last Admin: 11/26/17 08:34 Dose: 100 mcg Fentanyl/Bupivacaine HCl (Fentanyl/Bupivacaine/Ns 2 Mcg-0.125% 100 Ml) 100 ml EPIDUR ASDIRECTED DORIAN Last Admin: 11/26/17 15:18 Dose: 100 ml Lactated Ringer's (Ringers, Lactated) 1,000 mls @ 100 mls/hr IV ASDIRECTED DORIAN Last Admin: 11/26/17 12:06 Dose: 999 mls/hr Oxytocin/Lactated Ringer's (Pitocin In Lr 10 Units/1,000 Ml) 10 unit in 1,000 mls @ 12 mls/hr IV TITRATE DORIAN; Protocol Last Admin: 11/26/17 12:23 Dose: 2 munits/min, 12 mls/hr Ondansetron HCl (Zofran) 4 mg IVPUSH ONETIME PRN PRN Reason: Nausea/Vomiting Sodium Chloride (Saline Flush) 10 ml FLUSH ASDIRECTED PRN PRN Reason: Keep Vein Open
== END 2017-11-28 11:30 | disposition home or self-care (01) | DRG 775 ==
LOC: JD.OBCHECK 05:40 → JD.OB 05:43 → JD.OBCHECK 06:48 → JD.OB 06:49 → OBSVTOIN 16:18 → JD.OB 16:19 → INTOOBSV 16:19 → JD.OB 11-28 11:13
PROVIDERS: ADMIT Obstetrics & Gynecology; ATTEND Obstetrics & Gynecology
PROC: 10E0XZZ Delivery of Products of Conception, External Approach (ICD-10-PCS; principal; 2017-11-26)
PROC: 0KQM0ZZ Repair Perineum Muscle, Open Approach (ICD-10-PCS; 2017-11-26)
PROC: 10907ZC Drainage of Amniotic Fluid, Therapeutic from Products of Conception, Via Natural or Artificial Opening (ICD-10-PCS; 2017-11-26)
PROC: 00HU33Z Insertion of Infusion Device into Spinal Canal, Percutaneous Approach (ICD-10-PCS; 2017-11-26)
PROC: 3E0R3BZ Introduction of Anesthetic Agent into Spinal Canal, Percutaneous Approach (ICD-10-PCS; 2017-11-26)
DX: O70.1 Second degree perineal laceration during delivery (principal); Z37.0 Single live birth; Z3A.39 39 weeks gestation of pregnancy
CPT/HCPCS: 36415; 51702; 59025; 59300; 59409; 82565; 83615; 84450; 84460; 84520; 84550; 85025; 85362; 85384; 86850; 86900; 86901; A9270-GY; J2590; J3010; J7120